=== PATIENT | female | born 1960 ===

== ENCOUNTER 2019-12-26 06:00 | Outpatient (RCR) | payer MEDICARE, SELFPAY | END 2019-12-27 23:59 | disposition home or self-care (01) | LOC: WPT 06:00 | PROVIDERS: Referring Provider Orthopaedic Surgery; Visit Provider Orthopaedic Surgery | DX: M19.012 Primary osteoarthritis, left shoulder (principal); M75.22 Bicipital tendinitis, left shoulder | CPT/HCPCS: 97110; 97162 ==

== ENCOUNTER 2019-12-28 06:00 | Outpatient (RCR) | payer MEDICARE, SELFPAY | END 2020-01-27 23:59 | disposition home or self-care (01) | LOC: WPT 06:00 | PROVIDERS: Referring Provider Orthopaedic Surgery; Visit Provider Orthopaedic Surgery | DX: M19.012 Primary osteoarthritis, left shoulder (principal); M75.22 Bicipital tendinitis, left shoulder | CPT/HCPCS: 97110; 97112; 97140; G0283 ==

== ENCOUNTER → 2020-02-05 13:06 | Outpatient (BNVA) | payer MEDICARE, SELFPAY | PROVIDERS: Visit Provider Nurse Practitioner Family | DX: M51.36 Other intervertebral disc degeneration, lumbar region (principal); M79.671 Pain in right foot | CPT/HCPCS: 72114; 73630 ==